=== PATIENT | male | born 1995 | race Two or more races ===

== ENCOUNTER 2017-10-25 04:23 | Emergency (ER) | payer OTHER ==
[2017-10-25] MEDS ORDERED: IBUPROFEN 800 MG TABLET PO ONE (07:41)
--- NOTE | 2017-10-25 07:42 | ER Document Report ---
HPI - HPI Patient complains to provider of: Low back pain Onset: Other - 2 years Onset/Duration: Persistent Quality of pain: Achy Pain Level: 1 Context: Patient presents stating he has chronic low back pain for the past 2 years. Patient states that he was in the field last week and this may have aggravated his back pain symptoms. Patient does admit to drinking alcohol last night. Patient denies any new injury. Patient denies any urinary symptoms. Patient denies any radiculopathy or paresthesia. Associated Symptoms: Other - Low back pain. denies: Fever, Headache Exacerbated by: Denies Relieved by: Denies Similar symptoms previously: No Recently seen / treated by doctor: No - ROS ROS below otherwise negative: Yes Systems Reviewed and Negative: Yes All other systems reviewed and negative - CONSTITUTIONAL Constitutional: DENIES: Fever - NEURO Neurology: DENIES: Headache, Weakness - GASTROINTESTINAL Gastrointestinal: DENIES: Abdominal Pain, Nausea, Patient vomiting - MUSCULOSKELETAL Musculoskeletal: REPORTS: Back Pain. DENIES: Extremity pain - DERM Skin Color: Normal Skin Problems: None Past Medical History - General Information source: Patient - Social History Smoking Status: Never Smoker Frequency of alcohol use: Occasional Drug Abuse: None Occupation: Active duty Family History: Reviewed & Not Pertinent Patient has suicidal ideation: No Patient has homicidal ideation: No - Medical History Medical History: Negative Renal/ Medical History: Denies: Hx Peritoneal Dialysis Surgical Hx: Negative - Immunizations Immunizations up to date: Yes Vertical Provider Document - CONSTITUTIONAL Agree With Documented VS: Yes Exam Limitations: No Limitations General Appearance: WD/WN, No Apparent Distress Notes: PHYSICAL EXAMINATION: GENERAL: Well-appearing, well-nourished and in no acute distress. HEAD: Atraumatic, normocephalic. EYES: sclera clear, anicteric, conjunctiva are normal. ENT: nares patent, Moist mucous membranes. NECK: Normal range of motion, supple no lymphadenopathy LUNGS: respirations unlabored HEART: Regular rate and rhythm without murmurs EXTREMITIES: Normal range of motion, no pitting or edema. No cyanosis. Gait normal, pt ambulates without difficulty BACK: Lower lumbar paraspinal tenderness, lower lumbar midline tenderness, no deformities or step-offs. No CVA tenderness. NEUROLOGICAL: Cranial nerves grossly intact. Normal speech, normal gait. No footdrop PSYCH: Normal mood, normal affect. SKIN: Warm, Dry, normal turgor, no rashes or lesions noted. Course - Re-evaluation Re-evalutation: 10/25/17 08:03 Patient states that he said that he had back pain as he did not want to get in trouble for presenting to the emergency department after being intoxicated last night. Patient states that he had been drinking alcohol last night and is uncertain how he arrived at the hospital. Patient states that he has chronic back pain and does not want any x-rays performed. Patient states that he just wants to go home and is attempting to call a ride. Patient is clinically sober at this time. The patient presents with low back pain without signs of spinal cord compression, cauda equina syndrome, infection, aneurysm, or other serious etiology. The patient is neurologically intact. Given the extremely risk of these diagnoses further testing and evaluation for these possibilities does not appear to be indicated at this time. Patient has been instructed to return if the symptoms worsen or change in any way. 10/25/17 17:47 - Vital Signs Vital signs: Temp Pulse Resp BP Pulse Ox 97.5 F 61 15 99/57 L 99 10/25/17 07:19 10/25/17 07:19 10/25/17 07:19 10/25/17 07:19 10/25/17 07:19 Discharge - Discharge Clinical Impression: Alcohol abuse Chronic back pain Qualifiers: Back pain location: back pain in unspecified location Back pain laterality: unspecified Qualified Code(s): M54.9 - Dorsalgia, unspecified Condition: Stable Disposition: HOME, SELF-CARE Instructions: Acute Alcohol Intoxication ([facility]), Chronic Back Pain ([facility]) Additional Instructions: Return immediately for any new or worsening symptoms Followup with your primary care provider, call tomorrow to make a followup appointment Avoid use of alcohol Referrals: FERNANDO KUHN DO [Primary Care Provider] - Follow up as needed [facility] [Provider Group] - Follow up as needed
[2017-10-25 08:28] VITALS: BP 114/68
== END 2017-10-25 08:27 | disposition home or self-care (01) ==
LOC: ER 04:23
DX: M54.9 Dorsalgia, unspecified (principal); F10.10 Alcohol abuse, uncomplicated
CPT/HCPCS: 99284